=== PATIENT | female | born 1990 | race Caucasian/White ===

== ENCOUNTER 2020-06-19 10:49 | Emergency (ER) | payer OTHER ==
[~2020-06-19] VITALS: Ht 162.6 cm; Wt 76.2 kg
[~2020-06-19 10:49] MED LIST: ADDERALL; NORCO 5-325 TA1 EACH PO; PRENATAL; RITALIN; TESSALON PERLE100 MG PO; VENTOLIN HFA 1818 GM INH; ZPAK PO
[2020-06-19] MEDS ORDERED: ACYCLOVIR 200200 MG PO (11:15)
[2020-06-19 11:51] LABS: ABSOLUTE LYMPHOCYTES 0.9 thou/uL (0.8-5.3); ABSOLUTE MONOCYTES 0.6 thou/uL (0.0-1.2); ABSOLUTE NEUTROPHILS 6.2 thou/uL (1.6-8.1); BASOPHILS 0.3 %; EOSINOPHILS 0.1 %; HEMATOCRIT 44.8 % (37.0-47.0); HEMOGLOBIN 15.2 gm/dL (12.0-15.0); LYMPHOCYTES 11.5 %; MCH 32.6 pg (26.0-34.0); MCHC 33.9 g/dL (28.0-37.0); MPV 8.6 fl. (7.2-11.1); NUCLEATED RBCS 0 /100WBC; PLATELET COUNT* 208 thou/uL (150-400); POLYS 80.1 %; RBC 4.67 mil/uL (4.20-5.00); RDW-CV 13.4 % (10.5-14.5); WBC 7.8 thou/uL (4.0-11.0)
[2020-06-19 12:02] LABS: CALCIUM 9.5 mg/dL (8.5-10.1); CREATININE 0.9 mg/dL (0.6-1.3); POTASSIUM 3.6 mmol/L (3.5-5.1)
[2020-06-19 12:13] LABS: ALBUMIN 5.1 g/dL (3.4-5.0); MAGNESIUM 1.6 mg/dL (1.8-2.4); TOTAL BILIRUBIN 0.5 mg/dL (<0.1-1.0); TOTAL PROTEIN 8.9 g/dL (6.4-8.2)
[2020-06-19] MEDS ORDERED: PHENERGAN 25 MG25 M1 PO (14:00)
[2020-06-19] MEDS ORDERED: NORCO 5-325 TA1 EAC2 PO (14:00)
[2020-06-19] MEDS ORDERED: ONDANSETRON HCL4 M2 PO (14:00)
[2020-06-19] MEDS ORDERED: VALTREX 500 MG500 MG PO (14:10)
[2020-06-19] MEDS ORDERED: ZOVIRAX30 GM TOP (14:10)
[2020-06-19 14:37] VITALS: BP 130/69
--- NOTE | 2020-06-20 13:42 | EKG ---
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 : 1990 Requested By: Leida Todd Order Number: [id number] MD: Carrillo Dietz Measurements Intervals Two Dot Rate: 93 P: -25 VT: 143 QRS: -10 QRSD: 89 T: 2 QT: 339 QTc: 422 Interpretive Statements Sinus rhythm LAE, consider biatrial enlargement Probable left ventricular hypertrophy Borderline T abnormalities, inferior leads No previous ECG available for comparison Electronically Signed On 06-20-2020 13:42:22 CDT by Carrillo Dietz [email or web address] <ELECTRONICALLY SIGNED> By: Carrillo Dietz MD, [facility] 06/20/20 1342 1128 1128 Carrillo Dietz MD, [facility] /EPI
== END 2020-06-19 14:38 | disposition home or self-care (01) ==
LOC: M.ERS 10:49
PROVIDERS: Nurse Practitioner Family
DX: B02.9 Zoster without complications (principal); R11.2 Nausea with vomiting, unspecified; F17.210 Nicotine dependence, cigarettes, uncomplicated; Z88.1 Allergy status to other antibiotic agents